=== PATIENT | female | born 1965 | race Caucasian/White ===

== ENCOUNTER 2017-11-12 11:25 | Emergency (ER) | payer OTHER ==
[~2017-11-12] VITALS: Ht 162.6 cm; Wt 66.2 kg
[~2017-11-12 11:25] MED LIST: 5-HTP50 MG PO; AVELOX400 MG PO; COMBIVENT1 ARO INH; CRANBERRY400 MG PO; DOK100 MG PO; DUONEB 3 MG/3 ML3 ML INH/SOL; ESZOPICLONE2 MG PO; JUNEL FE 1/20 21 TAB PO; LAXATIVE5 M1 PO; LIOTHYRONINE SO5 MCG PO; METOPROLOL SUC100 M2 PO; MYCOSTATIN POWD15 GM TOP; NOVOLOG100 U/ML SC; OSCAL D 500 MG PO; PREDNISONE 20MG20 MG PO; PREDNISONE5 MG PO; PRILOSEC 20MG C20 MG PO; PROMETH/CODEIN120 ML PO; Robitussin PO; SERTRALINE HCL100 MG PO; SINGULAIR10 MG PO; SPIRONOLACTONE25 MG PO; SYNTHROID50 MCG PO; TRAMADOL HCL50 M1 PO; TRAMADOL50 MG PO; VITAMIN B12500 MCG PO; VITAMIN D1000 IU PO; VITAMIN D31000 IU PO; ZYRTEC ALLERGY10 MG PO; [UNRECOGNIZED DRUG - OTHER] INH
[2017-11-12 15:03] LABS: ABSOLUTE BASOPHIL COUNT 0 /CUMM (0.0-0.2); ABSOLUTE EOSINOPHIL COUNT 0.1 /CUMM (0.0-0.7); ABSOLUTE GRANULOCYTE CT 5.2 /CUMM (1.4-6.5); ABSOLUTE MONOCYTE COUNT 0.6 /CUMM (0.10-0.60); BASOPHIL % 0 % (0.0-2.0); EOSINOPHIL % 1.6 % (0-5); MEAN CORPUSCULAR HGB CONC 34.7 G/DL (33.0-37.0); MEAN PLATELET VOLUME 8.6 FL (7.4-10.4); PLATELET COUNT 208 /CUMM (130-400); RBC DISTRIBUTION WIDTH 13.3 % (11.5-14.5); RED BLOOD CELL CT 4.11 /CUMM (4.20-5.40)
[2017-11-12] MEDS ORDERED: REQUIP2 M1 PO (15:32)
[2017-11-12] MEDS ORDERED: REQUIP0.5 M1 PO (15:32)
[2017-11-12] MEDS ORDERED: DICLOFENAC SODI75 M2 PO (15:34)
--- NOTE | 2017-11-12 15:47 | ED GI/GU/ABDOMINAL COMPLAINT ---
History of Present Illness General Chief Complaint: Abdominal Pain/Flank Pain Stated Complaint: LOWER ABD PAIN Source: patient Exam Limitations: no limitations Vital Signs & Intake/Output Vital Signs & Intake/Output Vital Signs Date Time Temp Pulse Resp B/P B/P Pulse O2 O2 Flow FiO2 Mean Ox Delivery Rate 11/12 1714 98.0 60 16 109/69 97 Room Air 11/12 1656 Room Air 11/12 1551 97.9 60 16 112/63 96 Room Air 11/12 1220 97.3 75 18 98/55 99 Room Air Room Air Allergies Coded Allergies: Sulfa (Sulfonamide Antibiotics) (SOB 05/04/15) nitrofurantoin (SBO 05/04/15) guaiacol (VOMIT 05/05/15) guaifenesin (VOMIT 05/05/15) hydrocodone (VOMITING 05/05/15) oxycodone (VOMITING 05/05/15) Reconcile Medications Cyclobenzaprine HCl 10 MG TABLET 1 TAB PO TID SPASMS Diclofenac Sodium 75 MG TABLET.DR 1 TAB PO BID PAIN (Reported) Hydrocodone/Acetaminophen (Hydrocodon-Acetaminophen 5-325) 5 MG-325 MG TABLET 0.5 TAB PO Q4-6 PRN PRN PAIN Levothyroxine Sodium (Synthroid) 50 MCG TABLET 1 TAB PO DAILY AC THROID ( Reported) Metoprolol Succinate 100 MG TAB.ER.24H 1 TAB PO QPM HEART (Reported) Ondansetron (Zofran Odt) 4 MG TAB.RAPDIS 1 TAB SL TID NAUSEA Ropinirole HCl (Requip) 2 MG TABLET 1 TAB PO QPM UNKNOWN (Reported) Ropinirole Hydrochloride (Requip) 0.5 MG TABLET 1 TAB PO DAILY UNKNOWN ( Reported) Sertraline HCl 100 MG TABLET 2 TAB PO DAILY MENTAL HEALTH (Reported) Triage Note: PT TO ED WITH C/O LEFT GROIN PAIN, WENT TO SLEEP LAB TECHNOLOGIST TODAY AND HAD ULTRASOUND WHICH WAS NEGATIVE, PT HAS REPORT WITH HER. PT STATING "I DON'T KNOW IF THIS MEANS ANYTHING BUT I HAD THERAPY AND MY LEFT LEG WAS PULLED ALOT AND THE PAIN STARTED AFTER THAT". PT DENIES URINE DIFF OR PAIN, DENIES ABD PAIN OR N/V/D, HAD NORMAL BM TODAY. Triage Nurses Notes Reviewed? yes ? N Is pt currently ? No Onset: Abrupt Duration: day(s): Timing: recent history HPI: 52-year-old female comes into the emergency room with complaints of left lower abdominal/inguinal pain. Symptoms been going on for days. Denies any fever chills vomiting. Denies any changes in bowel movement. Denies any urinary symptoms. She reports that she noticed the pain initially after physical therapy. She reports that she has a shortened left leg and reports that they were pulling on her leg on the left side to try to straighten it out. (Ramirez Sepulveda) Past History Travel History Traveled to [place] past 21 day No Medical History Any Pertinent Medical History? see below for history Neurological: NONE EENT: allergies Cardiovascular: LEAKING HEART VALVE, TACHYCARDIA Respiratory: bronchitis Gastrointestinal: fatty liver Hepatic: NONE Renal: NONE Musculoskeletal: R rotator cuff repair LS disc dx w L4 nerve root impingement Psychiatric: anxiety, insomnia Endocrine: hypothyroidism Blood Disorders: NONE Cancer(s): NONE SLEEP LAB TECHNOLOGIST/Reproductive: NONE History of MRSA: No History of VRE: No History of CDIFF: No Surgical History Surgical History: cholecystectomy Psychosocial History Who do you live with Spouse Services at Home None What is your primary language Persian Tobacco Use: Never used ETOH Use: denies use Illicit Drug Use: denies illicit drug use Family History Hx Contributory? No (Ramirez Sepulveda) Review of Systems Review of Systems Constitutional: Reports: no symptoms. EENTM: Reports: no symptoms. Respiratory: Reports: no symptoms. Cardiovascular: Reports: no symptoms. GI: Reports: see HPI. Genitourinary: Reports: no symptoms. Musculoskeletal: Reports: see HPI. Skin: Reports: no symptoms. Neurological/Psychological: Reports: no symptoms. Hematologic/Endocrine: Reports: no symptoms. Immunologic/Allergic: Reports: no symptoms. All Other Systems: Reviewed and Negative (Ramirez Sepulveda) Physical Exam Physical Exam General Appearance: well developed/nourished, no apparent distress, alert Head: atraumatic, normal appearance Eyes: Bilateral: normal appearance. Ears, Nose, Throat, Mouth: hearing grossly normal, moist mucous membrane Neck: normal inspection Respiratory: no respiratory distress Gastrointestinal: soft, non-tender, tenderness left inguinal muscle, no hernia appreciated, no left lower abdominal pain Back: normal inspection Extremities: normal range of motion Neurologic/Psych: awake, alert, oriented x 3 Skin: intact, normal color Core Measures ACS in differential dx? No Sepsis Present: No Sepsis Focused Exam Completed? No (Adis VIDAL,Ramirez) Progress Differential Diagnosis: hernia, muscle strain, diverticulitis, Plan of Care: Orders Procedure Date/time Status URINALYSIS 11/13 1423 Complete LIPASE 11/13 1423 Complete COMPREHENSIVE METABOLIC PANEL 11/13 1423 Complete CBC WITHOUT DIFFERENTIAL 11/13 1423 Complete Laboratory Tests 11/12/17 1450: Anion Gap 6, Estimated GFR > 60, BUN/Creatinine Ratio 40.0 H, Glucose 100 H, Calcium 9.3, Total Bilirubin 0.6, AST 42 H, ALT 54 H, Alkaline Phosphatase 81, Total Protein 6.6, Albumin 4.1, Globulin 2.5, Albumin/Globulin Ratio 1.6, Lipase 147, CBC w Diff NO MAN DIFF REQ, RBC 4.11 L, MCV 95.0, MCH 33.0 H, MCHC 34.7, RDW 13.3, MPV 8.6, Gran % 58.0, Lymphocytes % 33.3, Monocytes % 7.1, Eosinophils % 1.6, Basophils % 0, Absolute Granulocytes 5.2, Absolute Lymphocytes 3.0, Absolute Monocytes 0.6, Absolute Eosinophils 0.1, Absolute Basophils 0, Urine Color YEL, Urine Clarity HAZY H, Urine pH 7.0, Ur Specific [place] 1.020, Urine Protein NEG, Urine Ketones NEG, Urine Nitrite NEG, Urine Bilirubin NEG, Urine Urobilinogen 0.2, Ur Leukocyte Esterase NEG, Ur Microscopic SEDIMENT EXAMINED, Urine WBC RARE, Urine Bacteria MANY H, Urine Hemoglobin NEG, Urine Glucose NEG Diagnostic Imaging: Viewed by Me: CT Scan. Discussed w/RAD: CT Scan. Radiology Impression: PATIENT: ROHINI TORREZ PRESENT AGE: 52 PATIENT ACCOUNT NO: [id number] : 63 LOCATION: [facility] ORDERING PHYSICIAN: Ramirez VIDAL SERVICE DATE: 11/12/17 EXAM TYPE : CAT - CT ABD & PELVIS W IV CONTRAST EXAMINATION: CT ABDOMEN AND PELVIS WITH CONTRAST CLINICAL INFORMATION: Left lower quadrant pain. COMPARISON: The report of abdominal CT findings from 05/14/2015. TECHNIQUE: Multidetector volumetric imaging was performed of the abdomen and pelvis following IV administration of 95 mL of Optiray 320 intravenous contrast. Sagittal and coronal reformatted images were obtained on the technologist's workstation. DLP: 279 mGy-cm FINDINGS : LUNG BASES: Unremarkable. No basilar consolidation or pleural effusion. LIVER, GALLBLADDER, AND BILIARY TREE: The liver has normal size, shape, and attenuation. No focal hepatic lesion. The gallbladder is surgically absent. No intrahepatic or extrahepatic bile duct dilatation. PANCREAS: Unremarkable. SPLEEN: Unremarkable. ADRENAL GLANDS: Unremarkable. KIDNEYS AND URETERS: The kidneys have normal size, shape, and attenuation. No hydroureteronephrosis, urolithiasis or perinephric stranding. BLADDER: Unremarkable. BOWEL AND PERITONEUM: Stomach is unremarkable. The small and large bowel are normal in caliber. The appendix is not definitively seen. However, no inflammatory changes within the right lower quadrant. No evidence of focal bowel wall thickening or mesenteric fat stranding. Mild diverticulosis of the descending and sigmoid colon without diverticulitis. No ascites or pneumoperitoneum. ABDOMINAL WALL: Unremarkable. LYMPH NODES: No pathologic sized lymph nodes in the abdomen or pelvis. No inguinal lymphadenopathy. VASCULAR: Mild atherosclerosis of the abdominal aorta without aneurysm. PELVIC: No evidence of uterine or adnexal mass. Multiple phleboliths are present within the lower pelvis. No pelvic free fluid. MUSCULOSKELETAL: Multilevel degenerative disc disease of the lumbar spine. There is rotatory dextroscoliosis of the lumbar spine with mild left lateral listhesis and retrolisthesis of L2 on L3, and right lateral listhesis of L4 on L5. 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 IMPRESSION: No acute imaging abnormalities within the abdomen or pelvis. No specific source of abdominal pain is identified. There is mild diverticulosis of the descending and sigmoid colon without diverticulitis. DICTATED BY: Collins Mckinnon MD DATE/ TIME DICTATED:11/12/171626 CLINICAL MASSAGE THERAPIST:CHIRAG DATE/TIME TRANSCRIBED: 11/12/171626 CONFIDENTIAL, DO NOT COPY WITHOUT APPROPRIATE AUTHORIZATION. < Electronically signed in Other Vendor System> SIGNED BY: Collins Mckinnon MD 11/12/171637 Initial ED EKG: none (Ramirez Sepulveda) Departure Departure Disposition: HOME OR SELF CARE Condition: Stable Clinical Impression Primary Impression: Strain of left inguinal muscle Referrals: Juli Gamez DO (PCP/Family) Additional Instructions: Take Vicodin and Flexeril as prescribed. Follow-up with primary care doctor. Return if any concerns worsening symptoms. Please go over all results of today's visit with your primary care doctor. Contact your primary care doctor to let them know you were here in the emergency room. There may be nonspecific findings which may not be related to your visit today here in the emergency room but may require further evaluation and chronic monitoring by your primary care doctor. If you had a laceration today the chance of foreign body always remains. You should follow-up with your primary care doctor for recheck in 3-5 days for a wound check. If you had an x-ray done there is a chance that a fracture could have been missed on initial read and you should follow-up with your primary care doctor for repeat x-rays if symptoms persist. If your blood pressure was elevated here in the emergency room please have rechecked by monica primary care doctor within the next 48. If you were prescribed a narcotic here in the emergency room or any type of controlled substances you're not allowed to drive while taking this medication or operate any type of heavy machinery. Narcotics can make you feel lightheaded dizziness nausea and can cause constipation. You may need to cigar packer and picker a stool softener. Thank you for choosing [facility] emergency room. Please return to the emergency room immediately if you have any other concerns worsening of symptoms. Departure Forms: Customer Survey General Discharge Information Prescriptions: Current Visit Scripts Hydrocodone/Acetaminophen (Hydrocodon-Acetaminophen 5-325) 0.5 TAB PO Q4-6 PRN PRN PAIN #12 TAB Cyclobenzaprine HCl 1 TAB PO TID #30 TAB Ondansetron (Zofran Odt) 1 TAB SL TID #10 TAB Comments 11/12/17 Patient clinically looks well. In no apparent distress. Nontoxic-appearing. Symptoms are most consistent with muscular injury. No evidence of acute findings on CT scan. Follow-up with physical therapy and PCP. (Ramirez Sepulveda) PA/PROFESSOR OF BUSINESS ADMINISTRATION Co-Sign Statement Statement: ED Attending supervision documentation- I saw and evaluated the patient. I have also reviewed all the pertinent lab results and diagnostic results. I agree with the findings and the plan of care as documented in the PA's/PROFESSOR OF BUSINESS ADMINISTRATION's documentation. x I have reviewed the ED Record and agree with the PA's/PROFESSOR OF BUSINESS ADMINISTRATION's documentation. [] Additions or exceptions (if any) to the PAs/PROFESSOR OF BUSINESS ADMINISTRATION's note and plan are summarized below: [] (Tyree NIETO,Charles)
--- NOTE | 2017-11-12 16:38 | CT SCAN REPORT ---
EXAMINATION: CT ABDOMEN AND PELVIS WITH CONTRAST CLINICAL INFORMATION: Left lower quadrant pain. COMPARISON: The report of abdominal CT findings from 05/14/2015. TECHNIQUE: Multidetector volumetric imaging was performed of the abdomen and pelvis following IV administration of 95 mL of Optiray 320 intravenous contrast. Sagittal and coronal reformatted images were obtained on the technologist's workstation. DLP: 279 mGy-cm FINDINGS: LUNG BASES: Unremarkable. No basilar consolidation or pleural effusion. LIVER, GALLBLADDER, AND BILIARY TREE: The liver has normal size, shape, and attenuation. No focal hepatic lesion. The gallbladder is surgically absent. No intrahepatic or extrahepatic bile duct dilatation. PANCREAS: Unremarkable. SPLEEN: Unremarkable. ADRENAL GLANDS: Unremarkable. KIDNEYS AND URETERS: The kidneys have normal size, shape, and attenuation. No hydroureteronephrosis, urolithiasis or perinephric stranding. BLADDER: Unremarkable. BOWEL AND PERITONEUM: Stomach is unremarkable. The small and large bowel are normal in caliber. The appendix is not definitively seen. However, no inflammatory changes within the right lower quadrant. No evidence of focal bowel wall thickening or mesenteric fat stranding. Mild diverticulosis of the descending and sigmoid colon without diverticulitis. No ascites or pneumoperitoneum. ABDOMINAL WALL: Unremarkable. LYMPH NODES: No pathologic sized lymph nodes in the abdomen or pelvis. No inguinal lymphadenopathy. VASCULAR: Mild atherosclerosis of the abdominal aorta without aneurysm. PELVIC: No evidence of uterine or adnexal mass. Multiple phleboliths are present within the lower pelvis. No pelvic free fluid. MUSCULOSKELETAL: Multilevel degenerative disc disease of the lumbar spine. There is rotatory dextroscoliosis of the lumbar spine with mild left lateral listhesis and retrolisthesis of L2 on L3, and right lateral listhesis of L4 on L5. 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 IMPRESSION: No acute imaging abnormalities within the abdomen or pelvis. No specific source of abdominal pain is identified. There is mild diverticulosis of the descending and sigmoid colon without diverticulitis.
[2017-11-12 17:14] VITALS: BP 109/69
[2017-11-12] MEDS ORDERED: CYCLOBENZAPRINE10 M1 PO (17:35)
[2017-11-12] MEDS ORDERED: ZOFRAN ODT4 M1 SL (17:35)
[2017-11-12] MEDS ORDERED: HYDROCODON-ACE1 EAC2 PO (17:35)
== END 2017-11-12 18:05 ==
LOC: ERH 11:25
PROVIDERS: Physician Assistant Medical
DX: S39.011A Strain of muscle, fascia and tendon of abdomen, initial encounter (principal); R00.0 Tachycardia, unspecified; K76.0 Fatty (change of) liver, not elsewhere classified; E03.9 Hypothyroidism, unspecified; X50.9XXA Other and unspecified overexertion or strenuous movements or postures, initial encounter; Y93.89 Activity, other specified
CPT/HCPCS: 74177; 81001